=== PATIENT | female | born 1995 | race Caucasian/White ===

== ENCOUNTER 2021-05-13 15:04 | Observation (INO) | payer MEDICAID, OTHER ==
[~2021-05-13] VITALS: Ht 157.5 cm; Wt 73.5 kg
== END 2021-05-13 17:30 | disposition home or self-care (01) ==
LOC: LDRP 15:04
PROVIDERS: ADMIT Obstetrics & Gynecology Obstetrics; ATTEND Obstetrics & Gynecology Obstetrics
DX: O26.892 Other specified pregnancy related conditions, second trimester (principal); Z3A.27 27 weeks gestation of pregnancy; W20.8XXA Other cause of strike by thrown, projected or falling object, initial encounter; Y93.89 Activity, other specified; Y92.89 Other specified places as the place of occurrence of the external cause; Y99.8 Other external cause status
CPT/HCPCS: 59025; 76815; 81002; 94760; G0378